=== PATIENT | female | born 1960 | race African-American/Black ===

== ENCOUNTER 2017-01-15 17:50 | Emergency (ER) | payer BC, OTHER ==
[~2017-01-15] VITALS: Ht 152.4 cm; Wt 83.9 kg
[~2017-01-15 17:50] MED LIST: AMLO5TAB4 PO; Aspirin PO; HYDR12.553 PO; LISI20TA PO; PANT40TA3 PO
--- NOTE | 2017-01-15 18:31 | PHYS DOC ---
Past Medical History Past Medical History: Arthritis, GERD, Hypertension, Hypothyroid Past Surgical History: , Other Additional Past Surgical Histo: partial thyroidectomy (left side) Alcohol Use: Occasionally Drug Use: None Adult General Chief Complaint Chief Complaint: DIARRHEA HPI HPI Patient is a 56 year old female who presents with 4 days nb watery diarrhea. Notes multiple episodes of diarrhea today. States she initially had nbnb emesis followed by nb diarrhea on first day. N/V has resolved yesterday and she is tolerating po. She called PCP and was instructed to come to ED. She notes being placed on 2 different cephalosporin medications for UTI recently. She has minimal crampy diffuse abdominal pain. She notes grandchild had similar symptoms prior to her. She denies f/c, cough, rhinorrhea, myalgia, dysuria. Review of Systems Review of Systems Constitutional: Denies fever or chills [] Eyes: Denies change in visual acuity, redness, or eye pain [] HENT: Denies nasal congestion or sore throat [] Respiratory: Denies cough or shortness of breath [] Cardiovascular: No additional information not addressed in HPI [] GI: Denies bloody stools or bloody emesis [] : Denies dysuria or hematuria [] Musculoskeletal: Denies back pain or joint pain [] Integument: Denies rash or skin lesions [] Neurologic: Denies headache, focal weakness or sensory changes [] Endocrine: Denies polyuria or polydipsia [] Current Medications Current Medications Current Medications Medications (Trade) Dose Ordered Sig/Louie Start Time Stop Time Status Last Admin Dose Admin Loperamide HCl (Imodium) 2 mg 1X ONCE 01/15/17 19:15 01/15/17 19:16 DC Sodium Chloride (Iv Sodium Chloride 0.9% 1000ml Bag) 1,000 ml @ 1,000 mls/hr Q1H 01/15/17 18:45 01/15/17 19:44 01/15/17 18:47 1,000 MLS/HR Allergies Allergies Allergies Coded Allergies Type Severity Reaction Last Updated Verified No Known Drug Allergies 11/22/14 No Physical Exam Physical Exam Constitutional: Well developed, well nourished, no acute distress, non-toxic appearance. [] HENT: Normocephalic, atraumatic, bilateral external ears normal, oropharynx moist, nose normal. [] Eyes: PERRLA, EOMI. [] Neck: Normal range of motion, supple. [] Cardiovascular:Heart rate regular rhythm [] Lungs & Thorax: Bilateral breath sounds clear to auscultation [] Abdomen: Bowel sounds normal, soft, no tenderness. [] Skin: Warm, dry, no erythema, no rash. [] Back: Normal ROM. [] Extremities: No tenderness, ROM intact, no edema. [] Neurologic: Alert and oriented X 3, normal motor function, normal sensory function, no focal deficits noted. [] Psychologic: Affect normal, judgement normal, mood normal. [] Current Patient Data Vital Signs Vital Signs Date Time Temp Pulse Resp B/P Pulse Ox O2 Delivery O2 Flow Rate FiO2 01/15/17 17:52 97.5 92 18 133/98 95 Room Air 97.5 Lab Values Laboratory Tests Test 01/15/17 18:28 Sodium Level 142mmol/L (136-145) Potassium Level 3.6mmol/L (3.5-5.1) Chloride Level 105mmol/L (98-107) Carbon Dioxide Level 23mmol/L (21-32) Anion Gap 14 (6-14) Blood Urea Nitrogen 12mg/dL (7-20) Creatinine 0.9mg/dL (0.6-1.0) Estimated GFR (Cockcroft-Gault) 77.8 Glucose Level 103mg/dL (70-99) H Calcium Level 9.1mg/dL (8.5-10.1) Total Bilirubin 0.3mg/dL (0.2-1.0) Direct Bilirubin 0.1mg/dL (0.0-0.2) Aspartate Amino Transferase (AST) 17U/L (15-37) Alanine Aminotransferase (ALT) 24U/L (14-59) Alkaline Phosphatase 75U/L (46-116) Total Protein 7.4g/dL (6.4-8.2) Albumin 3.7g/dL (3.4-5.0) Lipase 101U/L (73-393) Laboratory Tests 01/15/17 18:28 Course & Med Decision Making Course & Med Decision Making Pertinent Labs and Imaging studies reviewed. (See chart for details) Workup is unremarkable. She gave stool sample for lab. Return precautions given. She understands and agrees with plan. Dragon Disclaimer Dragon Disclaimer This electronic medical record was generated, in whole or in part, using a voice recognition dictation system. Departure Departure Impression: Primary Impression: Nausea vomiting and diarrhea Disposition: 01 HOME, SELF-CARE Condition: STABLE Referrals: PILAR DAILEY (PCP) Patient Instructions: Diet for Diarrhea, Adult Additional Instructions: Take Imodium as needed for diarrhea. Drink liquids to stay hydrated. Follow up with your primary care doctor within 2 days for results of your stool studies. Return for concerns. Shannan METZ MD Jan 15, 2017 18:31
[2017-01-15] MEDS ORDERED: IV NORMAL SALINE 1000ML BAG 1,000 ML IV SCH (18:45)
[2017-01-15 18:46] LABS: CALCIUM 9.1 mg/dL (8.5-10.1); CREATININE 0.9 mg/dL (0.6-1.0); GFR 77.8; POTASSIUM 3.6 mmol/L (3.5-5.1)
[2017-01-15 18:52] LABS: ALBUMIN 3.7 g/dL (3.4-5.0); DIRECT BILIRUBIN 0.1 mg/dL (0.0-0.2); TOTAL BILIRUBIN 0.3 mg/dL (0.2-1.0); TOTAL PROTEIN 7.4 g/dL (6.4-8.2)
[2017-01-15] MEDS ORDERED: LOPERAMIDE 2 MG CAPSULE PO ONE (19:15)
[2017-01-15 19:47] VITALS: BP 132/73
== END 2017-01-15 19:51 | disposition home or self-care (01) ==
LOC: ER 17:50
DX: R19.7 Diarrhea, unspecified (principal); R11.2 Nausea with vomiting, unspecified; R10.84 Generalized abdominal pain; E03.9 Hypothyroidism, unspecified; I10 Essential (primary) hypertension; K21.9 Gastro-esophageal reflux disease without esophagitis; M19.90 Unspecified osteoarthritis, unspecified site
CPT/HCPCS: 36415; 80048; 80076; 83690; 87324; 96360; 99284; J7030; 87045

== ENCOUNTER 2017-04-05 10:57 | Emergency (ER) | payer BC ==
[~2017-04-05] VITALS: Ht 152.4 cm; Wt 83.9 kg
[2017-04-05 11:24] VITALS: BP 149/89
[2017-04-05] MEDS ORDERED: SULF1TAB24 PO (12:18)
--- NOTE | 2017-04-05 12:19 | PHYS DOC ---
Past Medical History Past Medical History: Arthritis, GERD, Hypertension, Hypothyroid Past Surgical History: , Other Additional Past Surgical Histo: partial thyroidectomy (left side) Alcohol Use: Occasionally Drug Use: None Adult General Chief Complaint Chief Complaint: LOWER EXTREMITY SWELLING [facility] HPI Patient is a 56 year old female since emergency department stating that she's been having calf pain for the last to 3 days. She states that it hurts whenever she is stating walking on the foot. She also states that this morning it's was hurting really bad when she went to get out of bed. Patient states she went to work and was unable to ambulate as it was increasing pain. She states that she went to Dr. Rojas's office and was sent here to rule out a DVT. Patient denies any recent travel. She denies any hormonal therapy. She denies any history of DVTs, she denies any family history of DVTs. Review of Systems Review of Systems Constitutional: Denies fever or chills [] Eyes: Denies change in visual acuity, redness, or eye pain [] HENT: Denies nasal congestion or sore throat [] Respiratory: Denies cough or shortness of breath [] Cardiovascular: No additional information not addressed in HPI [] GI: Denies abdominal pain, nausea, vomiting, bloody stools or diarrhea [] : Denies dysuria or hematuria [] Musculoskeletal: Denies back pain. C/o left lower leg pain and swelling Integument: Denies rash or skin lesions [] Neurologic: Denies headache, focal weakness or sensory changes [] Endocrine: Denies polyuria or polydipsia [] Allergies Allergies Allergies Coded Allergies Type Severity Reaction Last Updated Verified No Known Drug Allergies 11/22/14 No Physical Exam Physical Exam Constitutional: Well developed, well nourished, no acute distress, non-toxic appearance. [] HENT: Normocephalic, atraumatic, bilateral external ears normal, oropharynx moist, no oral exudates, nose normal. [] Eyes: PERRLA, EOMI, conjunctiva normal, no discharge. [] Neck: Normal range of motion, no tenderness, supple, no stridor. [] Cardiovascular:Heart rate regular rhythm Lungs & Thorax: no respiratory distress Skin: Warm, dry, no erythema, no rash. [] Back: No tenderness Extremities: Left calf tenderness, no cyanosis, no clubbing, ROM intact, no edema. Patient with redness and swelling noted to the anterior lower leg, + Homans sign. peripheral pulse 2+ cap refill brisk < 2 seconds. Neurologic: Alert and oriented X 3, normal motor function, normal sensory function, no focal deficits noted. [] Psychologic: Affect normal, judgement normal, mood normal. [] Current Patient Data Vital Signs Vital Signs Date Time Temp Pulse Resp B/P (MAP) Pulse Ox O2 Delivery O2 Flow Rate FiO2 04/05/17 11:24 98.4 63 20 98 Room Air 98.4 EKG EKG [] Radiology/Procedures Radiology/Procedures [facility] [address] [place], [place] [id number] IMAGING REPORT Signed PATIENT: CYNDI MARTINEZ ACCOUNT: [id number] : 1960 LOCATION: ER AGE: 56 SEX: F EXAM STATUS: REG ER ORD. PHYSICIAN: KOBY ALFORD APRN REASON: left calf pain with swelling PROCEDURE: VENOUS LOWER EXTREMITY LEFT Left lower extremity venous duplex study 04/05/2017 Clinical History: Left lateral calf pain and swelling.. Technique: Using a combination of real time ultrasound imaging and color-flow and pulse Doppler imaging techniques along with graded compression and augmentation, duplex evaluation of the deep venous system of the left lower extremity was performed. Multiple images were obtained. Findings: There is no sonographic evidence of deep venous thrombosis involving the visualized deep venous structures of left lower extremity. In the area of swelling structures which appear to represent partially thrombosed varicose veins are seen. Impression: There is no sonographic evidence of deep venous thrombosis involving the visualized deep venous structures of the left lower extremity. DICTATED and SIGNED BY: ARBEN GAMINO MD DATE: 04/05/17 3514 CC: KOBY ALFORD APRN; NON,STAFF; PASHA ROJAS MD ~ [] Course & Med Decision Making Course & Med Decision Making Pertinent Labs and Imaging studies reviewed. (See chart for details) Patient was noted by nuclear plant instrument technician to have a superficial blood clot. Patient does have swelling and tenderness noted on the anterior part of the lower leg. She does state that she has increased pain and discomfort with flexion of the foot. Peripheral pulses are 2+ cap refill brisk less than 2 seconds. Spoke with patient regards to using Tylenol and ibuprofen for pain and discomfort. She will also be covered with an antibiotic for potential phlebitis as well. Patient will be provided with ibuprofen here in the emergency department. She was instructed that she would need to use warm moist packs to the areas of discomfort on 20 minutes off 20 minutes several times a day. [] Dragon Disclaimer Dragon Disclaimer This electronic medical record was generated, in whole or in part, using a voice recognition dictation system. Departure Departure Impression: Primary Impression: Superficial thrombophlebitis Disposition: HOME, SELF-CARE Condition: STABLE Referrals: PASHA ROJAS MD (PCP) Patient Instructions: Venous Thromboembolism Additional Instructions: Activity as tolerated. Warm moist packs to the left lower leg on 20 minutes off 20 minutes several times a day for the next 2 days. Tylenol or ibuprofen for pain and discomfort. Medication as prescribed. Follow-up to primary care physician within the next week. Return back to emergency prior signs symptoms of become worse. Scripts Sulfamethoxazole/Trimethoprim (BACTRIM DS TABLET) 1 Each Tablet 1 TAB PO BID, #20 TAB Prov: KOBY ALFORD APRN 04/05/17 KOBY ALFORD APRN Apr 05, 2017 12:19
--- NOTE | 2017-04-05 12:31 | RAD ---
Left lower extremity venous duplex study 04/05/2017 Clinical History: Left lateral calf pain and swelling.. Technique: Using a combination of real time ultrasound imaging and color-flow and pulse Doppler imaging techniques along with graded compression and augmentation, duplex evaluation of the deep venous system of the left lower extremity was performed. Multiple images were obtained. Findings: There is no sonographic evidence of deep venous thrombosis involving the visualized deep venous structures of left lower extremity. In the area of swelling structures which appear to represent partially thrombosed varicose veins are seen. Impression: There is no sonographic evidence of deep venous thrombosis involving the visualized deep venous structures of the left lower extremity.
== END 2017-04-05 13:05 | disposition home or self-care (01) ==
LOC: ER 10:57
DX: I80.02 Phlebitis and thrombophlebitis of superficial vessels of left lower extremity (principal); I10 Essential (primary) hypertension; K21.9 Gastro-esophageal reflux disease without esophagitis; E03.9 Hypothyroidism, unspecified; M19.90 Unspecified osteoarthritis, unspecified site; Z98.890 Other specified postprocedural states
CPT/HCPCS: 93971; 99284-25

== ENCOUNTER 2018-03-13 11:48 | Emergency (ER) | payer BC ==
[2018-03-13] MEDS: ASPIRIN CHEWABLE 81 MG TABLET. PO (12:15)
[2018-03-13 12:23] LABS: ADD MAN DIFF? NO
[2018-03-13 12:39] LABS: BASO # 0.1 x10^3/uL (0.0-0.2); BASO % 1 % (0-3); EOS % 1 % (0-3); HEMATOCRIT 42.2 % (36.0-47.0); HEMOGLOBIN 14.5 g/dL (12.0-15.5); LYMPH # 1.4 x10^3/uL (1.0-4.8); LYMPH % 30 % (24-48); MEAN CORPUSCULAR HEMOGLOBIN 32 pg (25-35); MEAN CORPUSCULAR HGB CONC 34 g/dL (31-37); MEAN CORPUSCULAR VOLUME 92 fL (79-100); MONO # 0.2 x10^3/uL (0.0-1.1); MONO % 5 % (0-9); NEUT # 2.9 x10^3uL (1.8-7.7); NEUT % 63 % (31-73); PLATELET COUNT 493 x10^3/uL (140-400); RED BLOOD COUNT 4.58 x10^6/uL (3.50-5.40); RED CELL DISTRIBUTION WIDTH 14.2 % (11.5-14.5); WHITE BLOOD COUNT 4.6 x10^3/uL (4.0-11.0)
[2018-03-13 12:48] LABS: ANION GAP 6 (6-14); BLOOD UREA NITROGEN 11 mg/dL (7-20); BUN/CREATININE RATIO 16 (6-20); CALCIUM 9.6 mg/dL (8.5-10.1); CARBON DIOXIDE 31 mmol/L (21-32); CHLORIDE 102 mmol/L (98-107); CREATININE 0.7 mg/dL (0.6-1.0); GFR 103.6; GLUCOSE 86 mg/dL (70-99); SODIUM 139 mmol/L (136-145)
[2018-03-13 12:54] LABS: ALBUMIN 3.8 g/dL (3.4-5.0); ALK PHOS 71 U/L (46-116); ALT (SGPT) 21 U/L (14-59); AST (SGOT) 17 U/L (15-37); LIPASE 125 U/L (73-393); TOTAL BILIRUBIN 0.5 mg/dL (0.2-1.0); TOTAL PROTEIN 7.8 g/dL (6.4-8.2)
[2018-03-13 12:59] LABS: NT-PRO BNP 52 pg/mL (0-124); TROPONINI < 0.017 ng/mL (0.000-0.055)
[2018-03-13 13:05] LABS: D-DIMER 0.29 ug/mlFEU (0.00-0.50)
[2018-03-13 13:15] LABS: BILIRUBIN,URINE NEGATIVE (NEG); CLARITY,URINE CLEAR; COLOR,URINE YELLOW; GLUCOSE,URINE NEGATIVE (NEG); NITRITE,URINE NEGATIVE (NEG); PROTEIN,URINE NEGATIVE (NEG-TRACE); UROBILINOGEN,URINE 0.2 mg/dL (0.2 mg/dL)
[2018-03-13 13:22] LABS: BACTERIA,URINE 0 /HPF (0-FEW); WBC,URINE OCC /HPF (0-4)
== END 2018-03-13 13:54 | disposition home or self-care (01) ==
LOC: ER 11:48
DX: R07.89 Other chest pain (principal); K21.9 Gastro-esophageal reflux disease without esophagitis; I10 Essential (primary) hypertension; M19.90 Unspecified osteoarthritis, unspecified site; Z90.89 Acquired absence of other organs
CPT/HCPCS: 36415; 71045; 80053; 81001; 83690; 83880; 84484; 85025; 85379; 93005; 99285

== ENCOUNTER 2021-10-18 18:07 | Emergency (ER) | payer SELFPAY ==
[~2021-10-18] VITALS: Ht 152.4 cm; Wt 80.0 kg
[~2021-10-18 18:07] MED LIST changes: -PANT40TA3 PO; +PANT40TA77 PO; +SULF1TAB24 PO
--- NOTE | 2021-10-18 18:59 | PHYS DOC ---
Past Medical History Past Medical History: Arthritis, GERD, Hypertension, Hypothyroid Past Surgical History: , Other Additional Past Surgical Histo: partial thyroidectomy (left side) Smoking Status: Current Every Day Smoker Alcohol Use: Occasionally Drug Use: None General Adult HPI: HPI: Patient is a 61 year old female who presents with 2-week history of left-sided flank pain, the pain is now radiating up to her left upper and lateral chest area. The pain is worse with position changes and movement. She denies any trauma or injury. She does a lot of lifting maneuvers at work. She denies chest pressure, she does report some mild dyspnea. No dyspnea exertion. This pain is not worse with walking exertion. She denies abdominal pain. She denies nausea or vomiting, diarrhea, constipation. She denies urinary symptoms. She denies rash. She denies anterior chest pain or pressure. She does describe some mild pleuritic discomfort in her flank. She denies lower extremity pain or swelling. No recent travel, surgery, hospitalization. She has taken [id number] Tylenol with little relief. She reports that the pain seemed a little bit worse of the last few days. She is supposed to return to work in early October, and she works for the [employer], performing a lot of heavy lifting maneuvers and she wanted to make sure that there is nothing serious going on before she returns to work. She has not been able to contact her PCP about this specific issue yet. Review of Systems: Review of Systems: Constitutional: Denies fever or chills. [] HENT: Denies nasal congestion or sore throat. [] Respiratory: Denies cough. Reports mild shortness of breath. No dyspnea with exertion Cardiovascular: Left lateral upper chest pain. No peripheral edema. No chest pressure GI: Denies abdominal pain, nausea, vomiting, bloody stools or diarrhea. [] : Denies urinary symptoms Musculoskeletal: Left-sided flank and back pain. No joint pain redness or swelling. Integument: Denies rash. [] Neurologic: Denies headache, focal weakness or sensory changes. [] Psychiatric: Denies depression or anxiety. [] Heart Score: C/O Chest Pain: Yes HEART Score for Chest Pain: HEART Score for Chest Pain Response (Comments) Value History Slighlty/Non-Suspicious 0 ECG Nonspecific Repolarizatio 1 Age >45 - < 65 1 Risk Factors 1 or 2 Risk Factors 1 Troponin < Normal Limit 0 Total 3 Risk Factors: Risk Factors: DM, Current or recent (<one month) smoker, HTN, HLP, family history of CAD, obesity. Risk Scores: Score 0 - 3: 2.5% MACE over next 6 weeks - Discharge Home Score 4 - 6: 20.3% MACE over next 6 weeks - Admit for Clinical Observation Score 7 - 10: 72.7% MACE over next 6 weeks - Early Invasive Strategies Allergies: Allergies: Allergies Coded Allergies Type Severity Reaction Last Updated Verified No Known Drug Allergies 11/22/14 No Physical Exam: PE: Constitutional: Well developed, well nourished, no acute distress, non-toxic appearance. [] HENT: Normocephalic, atraumatic Eyes: Sclera are clear and anicteric Neck: Trachea is midline, no tenderness, neck is supple Cardiovascular:Heart rate regular rhythm, +2 radial and +2 posterior tibial pulses bilaterally Lungs & Thorax: Bilateral breath sounds clear to auscultation, no rales, rhonchi or wheezes. Equal chest rise. No chest wall deformity. Abdomen: Abdomen is soft, nondistended, nontender to palpation, no CVA tenderness, no flank or abdominal ecchymoses. No palpable pulsatile mass. No audible bruit. No palpable organomegaly. Skin: Warm, dry, no erythema, no rash. [] Back: No deformities. No midline tenderness. There is mild soft tissue left- sided paraspinal muscle tenderness of the mid and lower thoracic spine. Palpation does reproduce her pain. Palpation of the left lateral ribs also does reproduce her pain. No palpable crepitus or step-offs or subcutaneous emphysema Extremities: No tenderness, no cyanosis, no clubbing, ROM intact, no edema. No calf tenderness. Neurologic: Alert and oriented X 3, normal motor function, normal sensory function, no focal deficits noted. 5 motor strength all 4 extremities. Ambulatory with a steady gait. Psychologic: Affect normal, judgement normal, mood normal. [] EKG: EKG: EKG is interpreted at 1907 Rhythm is sinus Rate is 59 bpm [place] is normal No STEMI Radiology/Procedures: Radiology/Procedures: [] Course & Med Decision Making: Course & Med Decision Making Pertinent Labs and Imaging studies reviewed. (See chart for details) IV Toradol was given for pain. I discussed the findings, differential diagnosis and plan of care with the patient. Her emergency department work-up is unremarkable for any acute life-threatening process. She is resting comfortably. She reports some improvement in pain with Toradol. I discussed home care instructions. She is to follow-up with her primary care physician. She may ultimately require further outpatient imaging studies, such as MRI, if that her symptoms persist. No indication for further invasive or emergent exams, imaging or admission at this time, based on current clinical presentation. Strict return precautions are given. She is comfortable with the plan of care. Dragon Disclaimer: Dragjaime Disclaimer: This electronic medical record was generated, in whole or in part, using a voice recognition dictation system. Departure Departure Impression: Primary Impression: Left flank pain Additional Impression: Atypical chest pain Disposition: HOME / SELF CARE / HOMELESS Condition: STABLE Referrals: Modesta JCAK MD (PCP) Patient Instructions: Back Exercises, Back Pain, Adult, Chest Pain (Nonspecific), Flank Pain Additional Instructions: Use the medication as needed/as directed. You may alternate ice and heat. You may perform gentle stretching maneuvers. You may take [id number] Tylenol or ibuprofen in addition to the muscle relaxers, to help with your pain. Return to the ER for acute injury or trauma, for shortness of breath, fever 100.4 or higher, coughing up blood, anterior chest pain or pressure, abdominal pain, vomiting, dehydration, weakness or for any other concerns. Follow-up with your primary care physician. If your symptoms persist, you may wish to discuss further outpatient imaging, such as MRI. Scripts Cyclobenzaprine Hcl (CYCLOBENZAPRINE HCL) 10 Mg Tablet 1 TAB PO BID for muscle spasm, #14 TAB Prov: RICHA MEAD DO 10/18/21 RICHA MEAD DO Oct 18, 2021 18:59
[2021-10-18] MEDS ORDERED: KETOROLAC 15 MG/ML VIAL. IVP ONE (19:15)
[2021-10-18 19:44] LABS: BASO # 0.1 x10^3/uL (0.0-0.2); BASO % 1 % (0-3); EOS # 0.1 x10^3/uL (0.0-0.7); EOS % 1 % (0-3); HEMATOCRIT 38.6 % (36.0-47.0); HEMOGLOBIN 13.2 g/dL (12.0-15.5); LYMPH # 1.4 x10^3/uL (1.0-4.8); LYMPH % 26 % (24-48); MEAN CORPUSCULAR HEMOGLOBIN 31 pg (25-35); MEAN CORPUSCULAR HGB CONC 34 g/dL (31-37); MEAN CORPUSCULAR VOLUME 91 fL (79-100); MONO # 0.3 x10^3/uL (0.0-1.1); MONO % 6 % (0-9); NEUT # 3.7 x10^3/uL (1.8-7.7); NEUT % 66 % (31-73); PLATELET COUNT 691 x10^3/uL (140-400); RED BLOOD COUNT 4.23 x10^6/uL (3.50-5.40); RED CELL DISTRIBUTION WIDTH 14.3 % (11.5-14.5); WHITE BLOOD COUNT 5.5 x10^3/uL (4.0-11.0)
[2021-10-18 19:47] LABS: BILIRUBIN,URINE NEGATIVE (NEG); CLARITY,URINE CLEAR; COLOR,URINE YELLOW; NITRITE,URINE NEGATIVE (NEG); PROTEIN,URINE NEGATIVE (NEG-TRACE); UROBILINOGEN,URINE 0.2 mg/dL (0.2 mg/dL)
[2021-10-18 19:59] LABS: BACTERIA,URINE 0 /HPF (0-FEW); WBC,URINE OCC /HPF (0-4)
[2021-10-18 20:07] LABS: CALCIUM 8.8 mg/dL (8.5-10.1); CREATININE 0.7 mg/dL (0.6-1.0); GFR 102.3; POTASSIUM 3.9 mmol/L (3.5-5.1)
[2021-10-18 20:10] LABS: ALBUMIN 3.4 g/dL (3.4-5.0); ALBUMIN/GLOBULIN RATIO 0.9 (1.0-1.7); MAGNESIUM 2.1 mg/dL (1.8-2.4); TOTAL BILIRUBIN 0.2 mg/dL (0.2-1.0); TOTAL PROTEIN 7.4 g/dL (6.4-8.2)
[2021-10-18 20:45] VITALS: BP 118/65
[2021-10-18] MEDS ORDERED: CYCL10TA19 PO (20:49)
--- NOTE | 2021-10-18 22:32 | RAD ---
PROCEDURE: XR CHEST 1V.10/18/2021 10:29 PM REASON FOR STUDY: Reason: chest pain / Spl. Instructions: / History: . COMPARISON: Study of 04/21/2018. FINDINGS: Depth of inspiration is shallower. Lungs are this, no acute infiltrate or effusion is seen. The heart may be mildly enlarged, but is probably not changed from the prior study. IMPRESSION: Shallow inspiration. Borderline cardiomegaly. Electronically signed by: He Burrows Jr., MD (10/18/2021 10:30 PM) [facility]Body
== END 2021-10-18 21:08 | disposition home or self-care (01) ==
LOC: ER 18:07
DX: R10.9 Unspecified abdominal pain (principal); R07.89 Other chest pain; K21.9 Gastro-esophageal reflux disease without esophagitis; I10 Essential (primary) hypertension; E03.9 Hypothyroidism, unspecified; F17.200 Nicotine dependence, unspecified, uncomplicated
CPT/HCPCS: 36415; 71045; 80053; 81001; 82550; 83690; 83735; 83880; 84484; 85025; 85379; 96374; 99284; J1885